=== PATIENT | male | born 1945 | race Caucasian/White ===

== ENCOUNTER 2022-04-06 18:51 | Observation (INO) ==
--- NOTE | 2022-04-06 19:15 | Emergency Department Note ---
Impression & Plan Encephalopathy, Closed head injury, Acute dehydration ED Provider Note Name: JOSHUA MEJÍA Age: 77 Sex: M Arrives Via: Ambulance Informant: Patient ( poor historian) EMS ED Provider: Luigi Guerrier MD Chief Complaint: Weakness Impression: As per impressions above Medical Decision Makin-year-old gentleman with no known past medical history is never been to this facility previously arrives via EMS after stumbling and falling in a parking lot. On examination patient is severely dehydrated appearing and encephalopathic. He is answering questions sometimes nonsensically but has no evidence of meningeal findings. He does have a contusion to the left side of his head/eyebrow. CT imaging of the head and neck are fortunately negative. A chest x-ray reveals no acute findings. Laboratory remarkable for some dehydration. UA is not convincing that it is infectious. I did obtain blood cultures and lactate which lactate is mildly elevated. While unlikely infectious I thought it was prudent to treat with a dose of IV antibiotics while awaiting further work-up. Procalcitonin was fortunately 0. Multiple repeat evaluations patient does appear better with IV fluids though still seems slightly off and thus I do not feel be safe to discharge him at this time. I do not feel that he needs an LP at this time as he is much more with it and has no clear meningeal findings on exam nor is there is significant WBC elevation or fever. He has no abdominal tenderness to palpation thus CT of the abdomen pelvis seems unnecessary at this time. Hospitalist was consulted for further management. Triage/Nursing Notes reviewed by Me Additional history obtained from EMS Differentials:Infection, dehydration, metabolic abnormality, hypo/hyperglycemia, electrolyte disturbance, anemia, hypoxia, cardiac sources, intracerebral event, toxicologic, neurologic, as well as other pathologies. Vital Signs: reviewed and remarkable for no significant abnormalities Interventions: Normal saline bolus Labs:Reviewed and remarkable for no significant abnormalities Imaging:CT imaging of head and neck as well as chest x-ray are negative as per radiologist EKG:Per My Interpretation: Indication weakness: Atrial sensed ventricular paced at 74 bpm without ischemia or ectopy. QTC of 488. There is no previous EKG for comparison. Cardiac/Tele Monitoring: Cardiac Monitoring: An Order was placed for continuous cardiac monitoring. The monitor shows a rate of 70with a paced rhythm. Consults:Dr. Todd Pino hospitalist Plan: Disposition:Hospitalization. Condition: Fair History of Present Illness:77-year-old gentleman brought in by EMS for evaluation of weakness. Patient reportedly was walking across parking lot when he fell over possibly on a curb. He hit the left side of his head. There is no reported loss of consciousness, nausea, vomiting. Patient brought into the ER as somewhat confused with a head injury. On arrival patient is quite dehydrated, cachectic and unkempt appearing. He smells strongly of urine and is somewhat encephalopathic. He is not able to give a very good review of systems nor really much history. Is much as he can say that he was admitted to another hospital a week or so ago which she says was for a checkup. He is unsure of what medications he is on. He does not know his past medical history other than he has a pacemaker. He denies doing any drugs or alcohol. He denies any current headache or neck pain or chest pain or shortness of breath. He denies any abdominal pain, nausea, vomiting, leg swelling, calf pain, fevers, chills, u rinary/bowel symptoms or any other symptoms at this time. ROS: Unable to obtain as patient somewhat encephalopathic Past Medical History: Unable to obtain due to patient mental status Past Surgical History:Unable to obtain due to patient mental status Family History:Unable to obtain due to patient mental status Social History:Unable to obtain due to patient mental status Home Medications:Unable to obtain due to patient mental status Allergies:Unable to obtain due to patient mental status Vitals:Blood Pressure: 135/70, Pulse 70, RR 18, T 36.9C, O2 92% on RA Physical Exam: GENERAL: Patient is mildly confused and unwell appearing and in no acute d istress. Dehydrated appearing EYES: No scleral icterus, unremarkable pupils. ENT: Mucous membranes dry, no nasal congestion. NECK: No masses appreciated, nomeningismus, trachea is midline. No nuchal rigidity RESPIRATORY: No dyspnea. Clear to auscultation and equal bilaterally. No wheeze, no rhonchi. CARDIOVASCULAR: Regular rate and rhythm.No murmurs, rubs, gallops appreciated. GASTROINTESTINAL: Abdomen soft, non-tender, no peritonitis.Bowel sounds positive.No masses appreciated. BACK: No midline tenderness, no CVA tenderness EXTREMITIES: Normal motion all extremities, no cyanosis, no edema. NEUROLOGIC: Patient somewhat somnolent though answering questions sometimes nonsensically, no acute motor or sensory deficits, no focal weakness, cranial nerves grossly intact. SKIN: No rash, no jaundice, no diaphoresis. GCS: 13 ED Course: Times/Reassessments: Patient much improved after IV fluids though still somewhat encephalopathic and thus hospitalist consulted for further management. Luigi Guerrier MD Past Med/Surg History Social History Smoking Status: Current every day smoker Hx Alcohol Use: No Hx Substance Use: No Preferred Language: Filipino Communication Ability: Effective Flexo Operator Required: No Beliefs That Will Affect Care: None marital status: Single Current Living Situation: Homeless Current Living Situation Comment: pt states he is living in his truck at a [place], no home Feels Safe at Home: Yes Assistive Devices: None Allergies Allergies Allergy/AdvReac Type Severity Reaction Status Date / Time Sulfa (Sulfonamide AdvReac Intermediate loc Verified 04/06/22 22:43 Antibiotics) Home Meds Home Medications Medication Instructions Recorded Confirmed atorvastatin 40 mg tablet 40 mg PO DAILY 04/06/22 04/06/22 digoxin 125 mcg (0.125 mg) tablet 125 mcg PO DAILY 04/06/22 04/06/22 escitalopram oxalate 10 mg tablet 10 mg PO DAILY 04/06/22 04/06/22 gabapentin 300 mg capsule 300 mg PO HS 04/06/22 04/06/22 metoprolol succinate 50 mg 50 mg PO DAILY 04/06/22 04/06/22 tablet,extended release 24 hr pantoprazole 40 mg tablet,delayed 40 mg PO DAILY 04/06/22 04/06/22 release tamsulosin 0.4 mg capsule 0.8 mg PO DAILY 04/06/22 04/06/22 Results & Data (ED) Vital Signs Vital Signs - 24 hr 04/06/22 19:07 04/06/22 20:52 Temperature 37.3 C Temperature Source Oral Pulse Rate 78 Pulse Rate [Apical] 67 Respiratory Rate 21 18 Respiratory Effort / Characteristics Non-Labored Respiratory Depth Normal Normal Blood Pressure 126/71 Blood Pressure [Right Arm] 128/78 Blood Pressure Mean 89 Blood Pressure Mean [Right Arm] 94 Pulse Oximetry 98 98 Oxygen Delivery Method Room Air Room Air Sepsis Recent Fever Within 48 Hours No Sepsis New/Unexplained Change in Mental Status N/A Sepsis Action Taken by Nursing No Action Required Laboratory Data Result diagrams: 04/07/22 05:37 04/07/22 05:37 Lab Results 04/06/22 04/06/22 04/06/22 Range/Units 19:11 19:11 19:11 WBC (4.8-10.8) K/uL RBC (4.7-6.1) M/uL Hgb (14.0-18.0) g/dL Hct (42-52) % MCV (80-100) fL MCH (25-34) pg MCHC (32-36) g/dL RDW Std Deviation (36.4-46.3) fL RDW Coeff of Gab (11.5-14.5) % Plt Count (130-400) K/uL MPV (7.4-10.4) fL Immature Gran % (Auto) % Neut % (Auto) % Lymph % (Auto) % [place] % (Auto) % Eos % (Auto) % Baso % (Auto) % Reticulocyte % (Auto) (0.5-2.0) % Neut # (Auto) (1.4-6.5) K/uL Lymph # (Auto) (1.2-3.4) K/uL [place] # (Auto) (0.11-0.59) K/uL Eos # (Auto) (0-0.5) K/uL Baso # (Auto) (0-0.2) K/uL Reticulocyte # (0.02-0.10) 10^6/uL Immature Gran # (Auto) (0.00-0.02) K/uL PT (9.0-12.0) Seconds INR (0.9-1.1) Sodium 141 (136-145) mmol/L Potassium 3.8 (3.5-5.1) mmol/L Chloride 108 H (98-107) mmol/L Carbon Dioxide 24 (21-32) mmol/L Anion Gap 9 (3-11) BUN 23 (6-23) mg/dl Creatinine 1.40 (0.6-1.4) mg/dl Est Cr Clr Drug Dosing 49.3 ml/min Est GFR ( Amer) 56.2 ml/min Est GFR (Non-Af Amer) 48.5 ml/min BUN/Creatinine Ratio 16.4 (10-20) Glucose 121 H (70-99(Fasting)) mg/dl Estimat Average Glucose mg/dl Hemoglobin A1c (4.5-5.6) % Lactate 2.2 H* (0.4-2.0) mmol/L Calcium 8.9 (8.5-10.1) mg/dl Magnesium 2.1 (1.7-2.4) mg/dl Total Bilirubin 0.8 (0.2-1.0) mg/dl Direct Bilirubin 0.1 (0-0.2) mg/dl AST 22 (13-39) U/L ALT 12 (7-52) U/L Alkaline Phosphatase 108 H (34-104) U/L Total Creatine Kinase 460 H (30-223) U/L Troponin I High Sens 12.3 (0-20) pg/ml Total Protein 6.4 (6.0-8.3) gm/dl Albumin 3.8 (3.4-5.0) gm/dl Lipase 9 L (11-82) U/L Vitamin B12 (180-914) pg/ml Folate (>5.38) ng/ml Procalcitonin < 0.05 (0-0.5) ng/ml TSH (0.300-4.500) uIu/ml Urine Color Urine Appearance (Clear) Urine pH (4.5-7.5) Ur Specific [place] (1.000-1.030) Urine Protein (Negative) Urine Glucose (UA) (Negative) Urine Ketones (Negative) Urine Blood (Negative) Urine Nitrite (Negative) Urine Bilirubin (Negative) Urine Urobilinogen (Negative) Ur Leukocyte Esterase (Negative) Urine WBC (Auto) (0-5) /hpf Urine RBC (Auto) (0-4) /hpf U Hyaline Cast (Auto) (0-5) /lpf U Epithel Cells (Auto) (0-5) /lpf Urine Bacteria (Auto) (Negative) Urine Yeast (None Prsent) Urine Opiates Screen (Neg) Ur Methadone, Qual (Neg) Urine Barbiturates (Neg) Ur Phencyclidine (PCP) (Neg) U Amphetamin/Meth Scrn (Neg) MDMA (Ecstasy) Screen (Neg) U Benzodiazepines Scrn (Neg) Ur Cocaine Metabolite (Neg) U Marijuana (THC) Screen (Neg) 04/06/22 04/06/22 04/06/22 Range/Units 19:11 19:11 19:11 WBC 8.04 (4.8-10.8) K/uL RBC 3.95 L (4.7-6.1) M/uL Hgb 12.3 L (14.0-18.0) g/dL Hct 37.9 L (42-52) % MCV 95.9 (80-100) fL MCH 31.1 (25-34) pg MCHC 32.5 (32-36) g/dL RDW Std Deviation 48.8 H (36.4-46.3) fL RDW Coeff of Gab 14.0 (11.5-14.5) % Plt Count 259 (130-400) K/uL MPV 10.9 H (7.4-10.4) fL Immature Gran % (Auto) 0.4 % Neut % (Auto) 76.4 % Lymph % (Auto) 9.0 % [place] % (Auto) 12.9 % Eos % (Auto) 1.1 % Baso % (Auto) 0.2 % Reticulocyte % (Auto) 1.1 (0.5-2.0) % Neut # (Auto) 6.14 (1.4-6.5) K/uL Lymph # (Auto) 0.72 L (1.2-3.4) K/uL [place] # (Auto) 1.04 H (0.11-0.59) K/uL Eos # (Auto) 0.09 (0-0.5) K/uL Baso # (Auto) 0.02 (0-0.2) K/uL Reticulocyte # 0.04 (0.02-0.10) 10^6/uL Immature Gran # (Auto) 0.03 H (0.00-0.02) K/uL PT 11.2 (9.0-12.0) Seconds INR 1.1 (0.9-1.1) Sodium (136-145) mmol/L Potassium (3.5-5.1) mmol/L Chloride (98-107) mmol/L Carbon Dioxide (21-32) mmol/L Anion Gap (3-11) BUN (6-23) mg/dl Creatinine (0.6-1.4) mg/dl Est Cr Clr Drug Dosing ml/min Est GFR ( Amer) ml/min Est GFR (Non-Af Amer) ml/min BUN/Creatinine Ratio (10-20) Glucose (70-99(Fasting)) mg/dl Estimat Average Glucose mg/dl Hemoglobin A1c (4.5-5.6) % Lactate (0.4-2.0) mmol/L Calcium (8.5-10.1) mg/dl Magnesium (1.7-2.4) mg/dl Total Bilirubin (0.2-1.0) mg/dl Direct Bilirubin (0-0.2) mg/dl AST (13-39) U/L ALT (7-52) U/L Alkaline Phosphatase (34-104) U/L Total Creatine Kinase (30-223) U/L Troponin I High Sens (0-20) pg/ml Total Protein (6.0-8.3) gm/dl Albumin (3.4-5.0) gm/dl Lipase (11-82) U/L Vitamin B12 (180-914) pg/ml Folate (>5.38) ng/ml Procalcitonin (0-0.5) ng/ml TSH 2.202 (0.300-4.500) uIu/ml Urine Color Urine Appearance (Clear) Urine pH (4.5-7.5) Ur Specific [place] (1.000-1.030) Urine Protein (Negative) Urine Glucose (UA) (Negative) Urine Ketones (Negative) Urine Blood (Negative) Urine Nitrite (Negative) Urine Bilirubin (Negative) Urine Urobilinogen (Negative) Ur Leukocyte Esterase (Negative) Urine WBC (Auto) (0-5) /hpf Urine RBC (Auto) (0-4) /hpf U Hyaline Cast (Auto) (0-5) /lpf U Epithel Cells (Auto) (0-5) /lpf Urine Bacteria (Auto) (Negative) Urine Yeast (None Prsent) Urine Opiates Screen (Neg) Ur Methadone, Qual (Neg) Urine Barbiturates (Neg) Ur Phencyclidine (PCP) (Neg) U Amphetamin/Meth Scrn (Neg) MDMA (Ecstasy) Screen (Neg) U Benzodiazepines Scrn (Neg) Ur Cocaine Metabolite (Neg) U Marijuana (THC) Screen (Neg) 04/06/22 04/06/22 04/06/22 Range/Units 19:11 20:45 21:07 WBC (4.8-10.8) K/uL RBC (4.7-6.1) M/uL Hgb (14.0-18.0) g/dL Hct (42-52) % MCV (80-100) fL MCH (25-34) pg MCHC (32-36) g/dL RDW Std Deviation (36.4-46.3) fL RDW Coeff of Gab (11.5-14.5) % Plt Count (130-400) K/uL MPV (7.4-10.4) fL Immature Gran % (Auto) % Neut % (Auto) % Lymph % (Auto) % [place] % (Auto) % Eos % (Auto) % Baso % (Auto) % Reticulocyte % (Auto) (0.5-2.0) % Neut # (Auto) (1.4-6.5) K/uL Lymph # (Auto) (1.2-3.4) K/uL [place] # (Auto) (0.11-0.59) K/uL Eos # (Auto) (0-0.5) K/uL Baso # (Auto) (0-0.2) K/uL Reticulocyte # (0.02-0.10) 10^6/uL Immature Gran # (Auto) (0.00-0.02) K/uL PT (9.0-12.0) Seconds INR (0.9-1.1) Sodium (136-145) mmol/L Potassium (3.5-5.1) mmol/L Chloride (98-107) mmol/L Carbon Dioxide (21-32) mmol/L Anion Gap (3-11) BUN (6-23) mg/dl Creatinine (0.6-1.4) mg/dl Est Cr Clr Drug Dosing ml/min Est GFR ( Amer) ml/min Est GFR (Non-Af Amer) ml/min BUN/Creatinine Ratio (10-20) Glucose (70-99(Fasting)) mg/dl Estimat Average Glucose 111 mg/dl Hemoglobin A1c 5.5 (4.5-5.6) % Lactate 1.4 (0.4-2.0) mmol/L Calcium (8.5-10.1) mg/dl Magnesium (1.7-2.4) mg/dl Total Bilirubin (0.2-1.0) mg/dl Direct Bilirubin (0-0.2) mg/dl AST (13-39) U/L ALT (7-52) U/L Alkaline Phosphatase (34-104) U/L Total Creatine Kinase (30-223) U/L Troponin I High Sens (0-20) pg/ml Total Protein (6.0-8.3) gm/dl Albumin (3.4-5.0) gm/dl Lipase (11-82) U/L Vitamin B12 (180-914) pg/ml Folate (>5.38) ng/ml Procalcitonin (0-0.5) ng/ml TSH (0.300-4.500) uIu/ml Urine Color Dark Yellow Urine Appearance Cloudy A (Clear) Urine pH 5.0 (4.5-7.5) Ur Specific [place] 1.021 (1.000-1.030) Urine Protein 1+ H (Negative) Urine Glucose (UA) Negative (Negative) Urine Ketones Trace H (Negative) Urine Blood 2+ H (Negative) Urine Nitrite Negative (Negative) Urine Bilirubin Negative (Negative) Urine Urobilinogen Negative (Negative) Ur Leukocyte Esterase 2+ H (Negative) Urine WBC (Auto) >30 H (0-5) /hpf Urine RBC (Auto) 10-30 H (0-4) /hpf U Hyaline Cast (Auto) 1-5 (0-5) /lpf U Epithel Cells (Auto) 0-5 (0-5) /lpf Urine Bacteria (Auto) Negative (Negative) Urine Yeast Budding A (None Prsent) Urine Opiates Screen (Neg) Ur Methadone, Qual (Neg) Urine Barbiturates (Neg) Ur Phencyclidine (PCP) (Neg) U Amphetamin/Meth Scrn (Neg) MDMA (Ecstasy) Screen (Neg) U Benzodiazepines Scrn (Neg) Ur Cocaine Metabolite (Neg) U Marijuana (THC) Screen (Neg) 04/06/22 04/06/22 Range/Units 21:09 21:21 WBC (4.8-10.8) K/uL RBC (4.7-6.1) M/uL Hgb (14.0-18.0) g/dL Hct (42-52) % MCV (80-100) fL MCH (25-34) pg MCHC (32-36) g/dL RDW Std Deviation (36.4-46.3) fL RDW Coeff of Gab (11.5-14.5) % Plt Count (130-400) K/uL MPV (7.4-10.4) fL Immature Gran % (Auto) % Neut % (Auto) % Lymph % (Auto) % [place] % (Auto) % Eos % (Auto) % Baso % (Auto) % Reticulocyte % (Auto) (0.5-2.0) % Neut # (Auto) (1.4-6.5) K/uL Lymph # (Auto) (1.2-3.4) K/uL [place] # (Auto) (0.11-0.59) K/uL Eos # (Auto) (0-0.5) K/uL Baso # (Auto) (0-0.2) K/uL Reticulocyte # (0.02-0.10) 10^6/uL Immature Gran # (Auto) (0.00-0.02) K/uL PT (9.0-12.0) Seconds INR (0.9-1.1) Sodium (136-145) mmol/L Potassium (3.5-5.1) mmol/L Chloride (98-107) mmol/L Carbon Dioxide (21-32) mmol/L Anion Gap (3-11) BUN (6-23) mg/dl Creatinine (0.6-1.4) mg/dl Est Cr Clr Drug Dosing ml/min Est GFR ( Amer) ml/min Est GFR (Non-Af Amer) ml/min BUN/Creatinine Ratio (10-20) Glucose (70-99(Fasting)) mg/dl Estimat Average Glucose mg/dl Hemoglobin A1c (4.5-5.6) % Lactate (0.4-2.0) mmol/L Calcium (8.5-10.1) mg/dl Magnesium (1.7-2.4) mg/dl Total Bilirubin (0.2-1.0) mg/dl Direct Bilirubin (0-0.2) mg/dl AST (13-39) U/L ALT (7-52) U/L Alkaline Phosphatase (34-104) U/L Total Creatine Kinase (30-223) U/L Troponin I High Sens (0-20) pg/ml Total Protein (6.0-8.3) gm/dl Albumin (3.4-5.0) gm/dl Lipase (11-82) U/L Vitamin B12 363 (180-914) pg/ml Folate 10.36 (>5.38) ng/ml Procalcitonin (0-0.5) ng/ml TSH (0.300-4.500) uIu/ml Urine Color Urine Appearance (Clear) Urine pH (4.5-7.5) Ur Specific [place] (1.000-1.030) Urine Protein (Negative) Urine Glucose (UA) (Negative) Urine Ketones (Negative) Urine Blood (Negative) Urine Nitrite (Negative) Urine Bilirubin (Negative) Urine Urobilinogen (Negative) Ur Leukocyte Esterase (Negative) Urine WBC (Auto) (0-5) /hpf Urine RBC (Auto) (0-4) /hpf U Hyaline Cast (Auto) (0-5) /lpf U Epithel Cells (Auto) (0-5) /lpf Urine Bacteria (Auto) (Negative) Urine Yeast (None Prsent) Urine Opiates Screen Neg (Neg) Ur Methadone, Qual Neg (Neg) Urine Barbiturates Neg (Neg) Ur Phencyclidine (PCP) Neg (Neg) U Amphetamin/Meth Scrn Neg (Neg) MDMA (Ecstasy) Screen Neg (Neg) U Benzodiazepines Scrn Neg (Neg) Ur Cocaine Metabolite Neg (Neg) U Marijuana (THC) Screen Neg (Neg) Administered Medications Ferrous Sulfate (Ferrous Sulfate 325 Mg Tab) 325 mg PO QAM [facility] Stop: 05/07/22 09:14 Last Admin: 04/07/22 10:13 Dose: Not Given Documented by: [id number] Metoprolol Succinate (Metoprolol Succ 50mg Ext Rel Tab) 50 mg PO DAILY [facility] Stop: 05/07/22 08:59 Last Admin: 04/07/22 10:12 Dose: Not Given Documented by: [id number] Pantoprazole Sodium (Pantoprazole 40 Mg Tab) 40 mg PO DAILY [facility] Stop: 05/07/22 08:59 Last Admin: 04/07/22 10:12 Dose: Not Given Documented by: [id number] Tamsulosin HCl (Tamsulosin Hcl 0.4 Mg Cap) 0.8 mg PO DAILY [facility] Stop: 05/07/22 08:59 Last Admin: 04/07/22 10:13 Dose: Not Given Documented by: [id number] Discontinued Medications Sodium Chloride (Nss 1000ml) 1,000 mls @ 999 mls/hr IV .[id number] ONE Stop: 04/06/22 20:51 Last Infusion: 04/06/22 23:30 Dose: 999 mls/hr Documented by: [id number] Admin: 04/06/22 20:34 Dose: 999 mls/hr Documented by: [id number] Cefepime HCl (Maxipime) 2,000 mg in 20 mls @ 5 mls/min IV NOW STA; Protocol Stop: 04/06/22 20:06 Last Admin: 04/06/22 21:49 Dose: 5 mls/min Documented by: [id number] Lactated Ringer's (Lr) 1,000 mls @ 80 mls/hr IV .[id number] ONE Stop: 04/07/22 10:26 Last Admin: 04/06/22 23:52 Dose: 80 mls/hr Documented by: [id number] Naloxone HCl (Naloxone Hcl 0.4 Mg/1 Ml Vial/Carp) 0.4 mg IV NOW STA Stop: 04/06/22 21:38 Last Admin: 04/06/22 21:49 Dose: 0.4 mg Documented by: [id number] Potassium Chloride (Potassium Chloride Crtab 20 Meq Tabcr) 40 meq PO ONE ONE Stop: 04/07/22 09:09 Last Admin: 04/07/22 10:13 Dose: Not Given Documented by: [id number] Discharge Plan Visit Data Chief Complaint: Fall Stated Complaint: FALL, LAC TO L EYEBROW, HEADACHE, CONFUSION ED Provider: Luigi Guerrier Discharge Problem: Encephalopathy, Closed head injury, Acute dehydration Patient Disposition: Admitted As Inpatient Discharge Instructions Interventions: ED Discharge Assessment Last Done: 04/06/22 23:01 Discharge Problem: Closed head injury Qualifiers: Encounter type: initial encounter Qualified Code(s): S09.90XA - Unspecified injury of head, initial encounter
[2022-04-06 19:35] LABS: Basophils # (auto) 0.02 K/uL (0-0.2); Basophils % (auto) 0.2 %; Eosinophils # (auto) 0.09 K/uL (0-0.5); Eosinophils % (auto) 1.1 %; Hematocrit (blood only) 37.9 % (42-52); Hemoglobin 12.3 g/dL (14.0-18.0); Immature Granulocytes # (auto) 0.03 K/uL (0.00-0.02); Immature Granulocytes % (auto) 0.4 %; Lymphocytes # (auto) 0.72 K/uL (1.2-3.4); Mean Corpuscular Hemoglobin 31.1 pg (25-34); Mean Corpuscular Hgb Conc 32.5 g/dL (32-36); Mean Corpuscular Volume 95.9 fL (80-100); Mean Platelet Volume 10.9 fL (7.4-10.4); Monocytes # (auto) 1.04 K/uL (0.11-0.59); Monocytes % (auto) 12.9 %; Neutrophils # (auto) 6.14 K/uL (1.4-6.5); Neutrophils % (auto) 76.4 %; Platelet Count 259 K/uL (130-400); RDW Standard Deviation 48.8 fL (36.4-46.3); Red Blood Count 3.95 M/uL (4.7-6.1); White Blood Count 8.04 K/uL (4.8-10.8)
[2022-04-06 19:38] LABS: INR 1.1 (0.9-1.1); Prothrombin Time 11.2 Seconds (9.0-12.0)
[2022-04-06] MEDS ORDERED: SODIUM CHLORIDE 0.9% 1000ML 1,000 ML IV ONE (19:51)
[2022-04-06 19:56] LABS: Troponin I High Sensitivity 12.3 pg/ml (0-20)
--- NOTE | 2022-04-06 20:00 | CT Scan Report ---
CT head/brain wo con CLINICAL HISTORY: head injury . Pain COMPARISON STUDY: No previous studies for comparison. CT DOSE: 1669.12 mGy.cm TECHNIQUE: Standard CT of the Brain was performed without IV contrast. A dose lowering technique was utilized adhering to the principles of ALARA. FINDINGS: Extraaxial space: There is no evidence for subdural hematoma. There are no extra-axial fluid collecti ons. Ventricles and cisterns: The ventricles are mildly dilated bilaterally. There is no evidence for midl ine shift or mass effect. Parenchyma: There is no subarachnoid or intraparenchymal hemorrhage. There is no evidence for an acut e infarct or cerebral edema. There is mild cerebral cortical atrophy and decreased attenuation in the periventricular white matter representing remote small vessel disease. There are no gross mass lesio ns. Osseous structures: There is no evidence for an acute fracture. The visualized paranasal sinuses are clear. The mastoid air cells are clear bilaterally. Soft tissues: There is no evidence for focal soft tissue swelling. IMPRESSION: 1. No acute intracerebral pathology. 2. Cerebral cortical atrophy and remote small vessel disease. ACT 112: Negative or not required by law. Electronically signed by: Kyler Mitchell M.D. 04/06/2022 7:59 PM
[2022-04-06] MEDS ORDERED: CEFEPIME 2,000 MG/20 ML VIAL IV STA (20:03)
--- NOTE | 2022-04-06 20:03 | CT Scan Report ---
CT cervical spine wo con CLINICAL HISTORY: head injury, fall . Neck pain COMPARISON STUDY: No previous studies for comparison. CT DOSE: TECHNIQUE: Standard CT of the Cervical Spine was performed without IV contrast. A dose lowering mell hnique was utilized adhering to the principles of ALARA. FINDINGS: Bones: Bones are osteopenic. There is no evidence for an acute fracture or malalignment. The heights of the vertebral bodies are maintained. The vertebral bodies are in anatomic alignment. The odontoid is intact and the atlantoaxial articulation is within normal limits. Disc spaces: There is moderate disc space narrowing at C5-6. Apophyseal joints: Degenerative apophyseal joint disease is present bilaterally. Soft tissues: The prevertebral soft tissues are within normal limits. IMPRESSION: 1. Osteopenia with no acute osseous pathology. 2. Degenerative disc and degenerative joint disease. ACT 112: Negative or not required by law. Electronically signed by: Kyler Mitchell M.D. 04/06/2022 8:02 PM
[2022-04-06 20:23] LABS: Influenza A virus by PCR Negative (Neg); Influenza B virus by PCR Negative (Neg); RSV by PCR Negative (Neg); SARS CoV2 RNA(COVID-19) InHosp NEGATIVE (Negative)
[2022-04-06 20:26] LABS: Albumin Level 3.8 gm/dl (3.4-5.0); BUN Creatinine Ratio 16.4 (10-20); Bilirubin Direct 0.1 mg/dl (0-0.2); Bilirubin,Total 0.8 mg/dl (0.2-1.0); Calcium 8.9 mg/dl (8.5-10.1); Creatinine Clr Calc Pharmacy 49.3 ml/min; Est GFR (African American) 56.2 ml/min; Est GFR (Non-African American) 48.5 ml/min; Magnesium 2.1 mg/dl (1.7-2.4); Potassium 3.8 mmol/L (3.5-5.1); Total Protein 6.4 gm/dl (6.0-8.3)
--- NOTE | 2022-04-06 20:42 | XRay Report ---
XR chest 1V portable CLINICAL HISTORY: fall, sepsis. COMPARISON STUDY: No previous studies for comparison. TECHNIQUE: 1 view of the chest FINDINGS: Single frontal view of the chest demonstrates the cardiomediastinal silhouette to be within normal li mits. Permanent cardiac pacer is in place. The lungs are clear of alveolar opacities. There is no rajinder dence for pleural effusion. There is no evidence for vascular congestion. There is no acute osseous p athology. IMPRESSION: 1. No acute cardiopulmonary disease. ACT 112: Negative or not required by law. Electronically signed by: Kyler Mitchell M.D. 04/06/2022 8:41 PM
--- NOTE | 2022-04-06 20:42 | XRay Report ---
XR pelvis 1-2V routine CLINICAL HISTORY: fall, sepsis. COMPARISON STUDY: No previous studies for comparison. TECHNIQUE: [2 AP views of the pelvis FINDINGS: The bones are osteopenic There is no evidence for an acute fracture. The hip joint spaces are maintai adebayo bilaterally and the bones are in anatomic alignment. The SI joints are intact bilaterally. The re maining visualized bones of the pelvis are intact. No focal soft tissue abnormalities identified. IMPRESSION: 1. No acute abnormality. ACT 112: Negative or not required by law. Electronically signed by: Kyler Mitchell M.D. 04/06/2022 8:40 PM
[2022-04-06 21:07] LABS: Appearance Urine Cloudy (Clear); Bacteria Urine Automated Negative (Negative); Bilirubin Urine Negative (Negative); Blood Urine 2+ (Negative); Color Urine Dark Yellow; Epithelial Cell Urine Auto 0-5 /lpf (0-5); Glucose Urine UA Negative (Negative); Ketones Urine Trace (Negative); Leukocyte Esterase Urine 2+ (Negative); Nitrite Urine Negative (Negative); Protein Urine 1+ (Negative); Specific Gravity Urine 1.021 (1.000-1.030); Urobilinogen Urine Negative (Negative); WBC Urine Automated >30 /hpf (0-5)
[2022-04-06] MEDS ORDERED: NALOXONE HCL 0.4 MG/1 ML VIAL/CARP IV STA (21:37)
--- NOTE | 2022-04-06 21:46 | History & Physical Report ---
Date of Service April 06, 2022 Assessment & Plan (1) Encephalopathy: Plan: Possible complicated UTI, no overt sepsis for now Possible syncopal event rule out pacemaker dysfunction, SSS status post PPM on Eliquis Rule out seizure disorder given incontinence symptoms, [facility] ER visit 2016 for similar circumstances Rule out illicit substance abuse Mild rhabdomyolysis secondary to fall, possible seizures hypertension, stable mood disorder Acute on chronic anemia, hemoglobin drop from baseline, FOBT done at the ER was negative Hyperglycemia rule out DM ongoing tobacco abuse Medical telemetry CS, Cefepime Pacemaker interrogation, TTE, EEG for syncope work-up Follow urine tox Follow CPK response to IVF Anemia work-up Check hemoglobin A1c Nicotine patch as needed Obtain records from PCPs office ([facility]) Social service consult in a.m. to trace family/contacts if patient still unable to provide information. DVT prophylaxis. SCDs. Appropriate to hold Eliquis for now given posttraumatic facial bruising until hemoglobin stable. Full code Attempted to call listed [facility], Ms. Char Norris (contact #[phone]). No answer. Text document was generated using [employer] voice recognition software. It may contain grammatical or spelling errors. Kindly contact undersigned for clarification of any documentation item in question. History of Present Illness Chief Complaint: Fall as per records Primary Care Provider: [facility] History obtained from patient, ER provider , and records. Unable to obtain history from patient secondary to lethargic state. Medical history significant for SSS status post PPM on Eliquis, hypertension, mood disorder, chronic anemia (baseline hemoglobin of 13), ongoing tobacco abuse. Patient is a resident [place] who was at the [facility]. Patient had a witnessed fall which led to patient hitting his face. Laceration noted on patient's left eyebrow. Subsequent urinary incontinence noted. No witnessed seizures. Patient noted to be confused. Patient brought to the ER for evaluation. Patient given cefepime at the ER for possible UTI. No response to Narcan trial. Patient unable to answer questions regarding headache, chest pain, S OB, syncope. Medical History as above Surgical History : PPM Family History : Could not be obtained secondary to obtunded state Personal/Social history : Ongoing tobacco abuse Allergies Allergy/AdvReac Type Severity Reaction Status Date / Time Sulfa (Sulfonamide AdvReac Intermediate loc Verified 06/06/22 22:43 Antibiotics) Home Medications Medication Instructions Recorded Confirmed Type atorvastatin 40 mg tablet 40 mg PO DAILY 04/06/22 04/06/22 History digoxin 125 mcg (0.125 mg) tablet 125 mcg PO DAILY 04/06/22 04/06/22 History escitalopram oxalate 10 mg tablet 10 mg PO DAILY 04/06/22 04/06/22 History gabapentin 300 mg capsule 300 mg PO HS 04/06/22 04/06/22 History metoprolol succinate 50 mg 50 mg PO DAILY 04/06/22 04/06/22 History tablet,extended release 24 hr pantoprazole 40 mg tablet,delayed 40 mg PO DAILY 04/06/22 04/06/22 History release tamsulosin 0.4 mg capsule 0.8 mg PO DAILY 04/06/22 04/06/22 History Past Med/Surg History Social History Smoking Status: Current every day smoker Hx Alcohol Use: No Hx Substance Use: No Preferred Language: Estonian Porter Luggage Required: No Beliefs That Will Affect Care: None Current Living Situation: Homeless Current Living Situation Comment: pt states he is living in his truck at a camps[place], no home Feels Safe at Home: Hesitant to Answer Assistive Devices: Walker Review of Systems Review of Systems: Could not be reliably obtained secondary to obtunded state Physical Exam Physical Exam: GENERAL: Obtunded, unkempt, urine stench noted, no respiratory distress SKIN: Pallor, warm HEENT: Contusion above left eyebrow, pale palpebral conjunctivae, no ptosis, dry buccal mucosa NECK : Supple, no tenderness CHEST : Decreased breath sounds, no tenderness HEART : RRR, no obvious murmurs ABDOMEN: Some distention, nontender RECTAL : Intact sphincter, brown stool (FOBT negative) EXTREMITIES : No LE swelling/tenderness, no other conspicuous deformities noted NEUROLOGIC : Obtunded, no facial asymmetry, gait and stance not assessed Results & Data Results & Data ([facility]) Vital Signs (Past 12 Hours) Vital Signs Temp Pulse Resp BP Pulse Ox 04/06/22 19:07 37.3 C 78 21 126/71 98 Laboratory Results Laboratory Results WBC 8.04 K/uL (4.8-10.8) 04/06/22 19:11 RBC 3.95 M/uL (4.7-6.1) L 04/06/22 19:11 Hgb 12.3 g/dL (14.0-18.0) L 04/06/22 19:11 Hct 37.9 % (42-52) L 04/06/22 19:11 MCV 95.9 fL (80-100) 04/06/22 19:11 MCH 31.1 pg (25-34) 04/06/22 19:11 MCHC 32.5 g/dL (32-36) 04/06/22 19:11 RDW Std Deviation 48.8 fL (36.4-46.3) H 04/06/22 19:11 RDW Coeff of Gab 14.0 % (11.5-14.5) 04/06/22 19:11 Plt Count 259 K/uL (130-400) 04/06/22 19:11 MPV 10.9 fL (7.4-10.4) H 04/06/22 19:11 Immature Gran % (Auto) 0.4 % 04/06/22 19:11 Neut % (Auto) 76.4 % 04/06/22 19:11 Lymph % (Auto) 9.0 % 04/06/22 19:11 [place] % (Auto) 12.9 % 04/06/22 19:11 Eos % (Auto) 1.1 % 04/06/22 19:11 Baso % (Auto) 0.2 % 04/06/22 19:11 Neut # (Auto) 6.14 K/uL (1.4-6.5) 04/06/22 19:11 Lymph # (Auto) 0.72 K/uL (1.2-3.4) L 04/06/22 19:11 [place] # (Auto) 1.04 K/uL (0.11-0.59) H 04/06/22 19:11 Eos # (Auto) 0.09 K/uL (0-0.5) 04/06/22 19:11 Baso # (Auto) 0.02 K/uL (0-0.2) 04/06/22 19:11 Immature Gran # (Auto) 0.03 K/uL (0.00-0.02) H 04/06/22 19:11 PT 11.2 Seconds (9.0-12.0) 04/06/22 19:11 INR 1.1 (0.9-1.1) 04/06/22 19:11 Sodium 141 mmol/L (136-145) 04/06/22 19:11 Potassium 3.8 mmol/L (3.5-5.1) 04/06/22 19:11 Chloride 108 mmol/L (98-107) H 04/06/22 19:11 Carbon Dioxide 24 mmol/L (21-32) 04/06/22 19:11 Anion Gap 9 (3-11) 04/06/22 19:11 BUN 23 mg/dl (6-23) 04/06/22 19:11 Creatinine 1.40 mg/dl (0.6-1.4) 04/06/22 19:11 Est Cr Clr Drug Dosing 49.3 ml/min 04/06/22 19:11 Est GFR ( Amer) 56.2 ml/min 04/06/22 19:11 Est GFR (Non-Af Amer) 48.5 ml/min 04/06/22 19:11 BUN/Creatinine Ratio 16.4 (10-20) 04/06/22 19:11 Glucose 121 mg/dl (70-99(Fasting)) H 04/06/22 19:11 Lactate 1.4 mmol/L (0.4-2.0) 04/06/22 21:07 Calcium 8.9 mg/dl (8.5-10.1) 04/06/22 19:11 Magnesium 2.1 mg/dl (1.7-2.4) 04/06/22 19:11 Total Bilirubin 0.8 mg/dl (0.2-1.0) 04/06/22 19:11 Direct Bilirubin 0.1 mg/dl (0-0.2) 04/06/22 19:11 AST 22 U/L (13-39) 04/06/22 19:11 ALT 12 U/L (7-52) 04/06/22 19:11 Alkaline Phosphatase 108 U/L (34-104) H 04/06/22 19:11 Total Creatine Kinase 460 U/L (30-223) H 04/06/22 19:11 Troponin I High Sens 12.3 pg/ml (0-20) 04/06/22 19:11 Total Protein 6.4 gm/dl (6.0-8.3) 04/06/22 19:11 Albumin 3.8 gm/dl (3.4-5.0) 04/06/22 19:11 Lipase 9 U/L (11-82) L 04/06/22 19:11 Procalcitonin < 0.05 ng/ml (0-0.5) 04/06/22 19:11 Urine Color Dark Yellow 04/06/22 20:45 Urine Appearance Cloudy (Clear) A 04/06/22 20:45 Urine pH 5.0 (4.5-7.5) 04/06/22 20:45 Ur Specific [place] 1.021 (1.000-1.030) 04/06/22 20:45 Urine Protein 1+ (Negative) H 04/06/22 20:45 Urine Glucose (UA) Negative (Negative) 04/06/22 20:45 Urine Ketones Trace (Negative) H 04/06/22 20:45 Urine Blood 2+ (Negative) H 04/06/22 20:45 Urine Nitrite Negative (Negative) 04/06/22 20:45 Urine Bilirubin Negative (Negative) 04/06/22 20:45 Urine Urobilinogen Negative (Negative) 04/06/22 20:45 Ur Leukocyte Esterase 2+ (Negative) H 04/06/22 20:45 Urine WBC (Auto) >30 /hpf (0-5) H 04/06/22 20:45 Urine RBC (Auto) 10-30 /hpf (0-4) H 04/06/22 20:45 U Hyaline Cast (Auto) 1-5 /lpf (0-5) 04/06/22 20:45 U Epithel Cells (Auto) 0-5 /lpf (0-5) 04/06/22 20:45 Urine Bacteria (Auto) Negative (Negative) 04/06/22 20:45 Urine Yeast Budding (None Prsent) A 04/06/22 20:45 SARS-CoV-2 (PCR) NEGATIVE (Negative) 04/06/22 Unknown Influenza Type A (PCR) Negative (Neg) 04/06/22 Unknown Influenza Type B (PCR) Negative (Neg) 04/06/22 Unknown RSV (RT-PCR) Negative (Neg) 04/06/22 Unknown Impressions Cervical Spine CT 04/06/22 19:03 CT cervical spine wo con CLINICAL HISTORY: head injury, fall . Neck pain COMPARISON STUDY: No previous studies for comparison. CT DOSE: TECHNIQUE: Standard CT of the Cervical Spine was performed without IV contrast. A dose lowering technique was utilized adhering to the principles of ALARA. FINDINGS: Bones: Bones are osteopenic. There is no evidence for an acute fracture or malalignment. The heights of the vertebral bodies are maintained. The vertebral bodies are in anatomic alignment. The odontoid is intact and the atlantoaxial articulation is within normal limits. Disc spaces: There is moderate disc space narrowing at C5-6. Apophyseal joints: Degenerative apophyseal joint disease is present bilaterally. Soft tissues: The prevertebral soft tissues are within normal limits. IMPRESSION: 1. Osteopenia with no acute osseous pathology. 2. Degenerative disc and degenerative joint disease. ACT 112: Negative or not required by law. Electronically signed by: Kyler Mitchell M.D. 04/06/2022 8:02 PM Chest X-Ray 04/06/22 19:03 XR chest 1V portable CLINICAL HISTORY: fall, sepsis. COMPARISON STUDY: No previous studies for comparison. TECHNIQUE: 1 view of the chest FINDINGS: Single frontal view of the chest demonstrates the cardiomediastinal silhouette to be within normal limits. Permanent cardiac pacer is in place. The lungs are clear of alveolar opacities. There is no evidence for pleural effusion. There is no evidence for vascular congestion. There is no acute osseous pathology. IMPRESSION: 1. No acute cardiopulmonary disease. ACT 112: Negative or not required by law. Electronically signed by: Kyler Mitchell M.D. 04/06/2022 8:[address] 04/06/22 19:03 CT head/brain wo con CLINICAL HISTORY: head injury . Pain COMPARISON STUDY: No previous studies for comparison. CT DOSE: 1669.12 mGy.cm TECHNIQUE: Standard CT of the Brain was performed without IV contrast. A dose lowering technique was utilized adhering to the principles of ALARA. FINDINGS: Extraaxial space: There is no evidence for subdural hematoma. There are no extra-axial fluid collections. Ventricles and cisterns: The ventricles are mildly dilated bilaterally. There is no evidence for midline shift or mass effect. Parenchyma: There is no subarachnoid or intraparenchymal hemorrhage. There is no evidence for an acute infarct or cerebral edema. There is mild cerebral cortical atrophy and decreased attenuation in the periventricular white matter representing remote small vessel disease. There are no gross mass lesions. Osseous structures: There is no evidence for an acute fracture. The visualized paranasal sinuses are clear. The mastoid air cells are clear bilaterally. Soft tissues: There is no evidence for focal soft tissue swelling. IMPRESSION: 1. No acute intracerebral pathology. 2. Cerebral cortical atrophy and remote small vessel disease. ACT 112: Negative or not required by law. Electronically signed by: Kyler Mitchell M.D. 04/06/2022 7:59 PM Pelvis X-Ray 04/06/22 19:03 XR pelvis 1-2V routine CLINICAL HISTORY: fall, sepsis. COMPARISON STUDY: No previous studies for comparison. TECHNIQUE: [2 AP views of the pelvis FINDINGS: The bones are osteopenic There is no evidence for an acute fracture. The hip joint spaces are maintained bilaterally and the bones are in anatomic alignment. The SI joints are intact bilaterally. The remaining visualized bones of the pelvis are intact. No focal soft tissue abnormalities identified. IMPRESSION: 1. No acute abnormality. ACT 112: Negative or not required by law. Electronically signed by: Kyler Mitchell M.D. 04/06/2022 8:40 PM Diagnostic Findings EKG as per my interpretation: Rate 75, paced rhythm
[2022-04-06] MEDS ORDERED: LACTATED RINGER'S 1,000 ML IV ONE (21:57)
[2022-04-06 22:04] LABS: Amphetamines+Metham, Urine Neg (Neg); Barbiturates, Urine Neg (Neg); Benzodiazepine, Urine Neg (Neg); Cocaine, Urine Neg (Neg); MDMA (Ecstacy), Urine Neg (Neg); Methadone, Urine Neg (Neg); Opiate, Urine Neg (Neg); Phencyclidine, Urine Neg (Neg)
[2022-04-06 22:51] LABS: Reticulocyte % 1.1 % (0.5-2.0); Reticulocytes # 0.04 10^6/uL (0.02-0.10)
[2022-04-06] MEDS ORDERED: ACETAMINOPHEN 325 MG TAB PO PRN (23:34)
[2022-04-06 23:41] LABS: Folate (Folic Acid) 10.36 ng/ml (>5.38)
[2022-04-07 01:17] LABS: Ferritin 59.5 ng/ml (8-388)
[2022-04-07 05:59] LABS: Basophils # (auto) 0.02 K/uL (0-0.2); Basophils % (auto) 0.3 %; Eosinophils # (auto) 0.24 K/uL (0-0.5); Eosinophils % (auto) 3.1 %; Hematocrit (blood only) 33.2 % (42-52); Hemoglobin 10.7 g/dL (14.0-18.0); Immature Granulocytes # (auto) 0.02 K/uL (0.00-0.02); Immature Granulocytes % (auto) 0.3 %; Lymphocytes # (auto) 1.41 K/uL (1.2-3.4); Lymphocytes % (auto) 18.3 %; Mean Corpuscular Hemoglobin 31.2 pg (25-34); Mean Corpuscular Hgb Conc 32.2 g/dL (32-36); Mean Corpuscular Volume 96.8 fL (80-100); Mean Platelet Volume 10.5 fL (7.4-10.4); Monocytes # (auto) 1.07 K/uL (0.11-0.59); Monocytes % (auto) 13.9 %; Neutrophils # (auto) 4.93 K/uL (1.4-6.5); Neutrophils % (auto) 64.1 %; Platelet Count 204 K/uL (130-400); RDW Coefficient of Variation 14.2 % (11.5-14.5); RDW Standard Deviation 50.1 fL (36.4-46.3); Red Blood Count 3.43 M/uL (4.7-6.1); White Blood Count 7.69 K/uL (4.8-10.8)
[2022-04-07 06:23] LABS: Est GFR (African American) 84.4 ml/min; Est GFR (Non-African American) 72.8 ml/min; Potassium 3.4 mmol/L (3.5-5.1)
[2022-04-07 07:12] LABS: Estimated Average Glucose 111 mg/dl; Hemoglobin A1C 5.5 % (4.5-5.6)
[2022-04-07] MEDS: TAMSULOSIN HCL 0.4 MG CAP PO SCH ×2 (08:06→10:13)
[2022-04-07] MEDS: METOPROLOL SUCC 50MG EXT REL TAB PO SCH ×2 (08:07→10:12)
[2022-04-07] MEDS: PANTOprazole 40 MG TAB PO SCH ×2 (08:07→10:12)
[2022-04-07] MEDS ORDERED: POTASSIUM CHLORIDE CRTAB 20 MEQ TABCR PO ONE (09:08)
[2022-04-07] MEDS: FERROUS SULFATE 325 MG TAB PO SCH ×2 (10:13→12:34)
[2022-04-07] MEDS: CEFEPIME 2,000 MG in SYRINGE 0 ML IV SCH ×2 (12:23→23:27)
--- NOTE | 2022-04-07 12:58 | Electroencephalogram ---
EEG Procedure Note Date of Service April 07, 2022 Start / End Times Start Time: 11:44 End Time: 12:[address] Austen Davalos History A 77-year-old male admitted with possible complicated urinary tract infection with confusion. EEG performed evaluation epileptiform activity. Home Medication List Medication Instructions Recorded Confirmed Type atorvastatin 40 mg tablet 40 mg PO DAILY 04/06/22 04/06/22 History digoxin 125 mcg (0.125 mg) tablet 125 mcg PO DAILY 04/06/22 04/06/22 History escitalopram oxalate 10 mg tablet 10 mg PO DAILY 04/06/22 04/06/22 History gabapentin 300 mg capsule 300 mg PO HS 04/06/22 04/06/22 History metoprolol succinate 50 mg 50 mg PO DAILY 04/06/22 04/06/22 History tablet,extended release 24 hr pantoprazole 40 mg tablet,delayed 40 mg PO DAILY 04/06/22 04/06/22 History release tamsulosin 0.4 mg capsule 0.8 mg PO DAILY 04/06/22 04/06/22 History Inpatient Medication List Ferrous Sulfate (Ferrous Sulfate 325 Mg Tab) 325 mg PO QAM [facility] Stop: 05/07/22 09:14 Last Admin: 04/07/22 12:34 Dose: 325 mg Documented by: [id number] Cefepime HCl 2,000 mg/ Syringe 20 mls @ 5 mls/min IV Q12H [facility]; Protocol Stop: 04/17/22 11:59 Last Admin: 04/07/22 12:23 Dose: 5 mls/min Documented by: [id number] Metoprolol Succinate (Metoprolol Succ 50mg Ext Rel Tab) 50 mg PO DAILY [facility] Stop: 05/07/22 08:59 Last Admin: 04/07/22 10:12 Dose: Not Given Documented by: [id number] Pantoprazole Sodium (Pantoprazole 40 Mg Tab) 40 mg PO DAILY [facility] Stop: 05/07/22 08:59 Last Admin: 04/07/22 10:12 Dose: Not Given Documented by: [id number] Tamsulosin HCl (Tamsulosin Hcl 0.4 Mg Cap) 0.8 mg PO DAILY [facility] Stop: 05/07/22 08:59 Last Admin: 04/07/22 10:13 Dose: Not Given Documented by: [id number] Discontinued Medications Sodium Chloride (Nss 1000ml) 1,000 mls @ 999 mls/hr IV .[id number] ONE Stop: 04/06/22 20:51 Last Infusion: 04/06/22 23:30 Dose: 999 mls/hr Documented by: [id number] Admin: 04/06/22 20:34 Dose: 999 mls/hr Documented by: [id number] Cefepime HCl (Maxipime) 2,000 mg in 20 mls @ 5 mls/min IV NOW STA; Protocol Stop: 04/06/22 20:06 Last Admin: 04/06/22 21:49 Dose: 5 mls/min Documented by: [id number] Lactated Ringer's (Lr) 1,000 mls @ 80 mls/hr IV .[id number] ONE Stop: 04/07/22 10:26 Last Infusion: 04/07/22 12:30 Dose: 0 mls/hr Documented by: [id number] Admin: 04/06/22 23:52 Dose: 80 mls/hr Documented by: [id number] Naloxone HCl (Naloxone Hcl 0.4 Mg/1 Ml Vial/Carp) 0.4 mg IV NOW STA Stop: 04/06/22 21:38 Last Admin: 04/06/22 21:49 Dose: 0.4 mg Documented by: [id number] Potassium Chloride (Potassium Chloride Crtab 20 Meq Tabcr) 40 meq PO ONE ONE Stop: 04/07/22 09:09 Last Admin: 04/07/22 10:13 Dose: Not Given Documented by: [id number] Description This is a 21 electrode EEG with a single channel dedicated to limited EKG. The electrodes were placed in accordance with the International 10-20 system. REPORT: At the onset of the EEG the patient is awake. The background is symmetric. There is a normal anterior to posterior gradient. The posterior dominant rhythm is 9 Hz. Anteriorly there is low amplitude beta activity. Drowsiness is characterized by increased theta activity, reduced blink rate, decreased myogenic artifact. Photic stimulation does not induce any abnormalities. No stage 2 sleep transients are seen. Interpretation IMPRESSION: This is a normal awake and drowsy routine EEG. There is no evidence of epileptiform activity or focal slowing.
--- NOTE | 2022-04-07 16:21 | Hospitalist Progress Note ---
Date of Service April 07, 2022 Assessment & Plan (1) Encephalopathy: Plan: Acute metabolic encephalopathy Syncopal Episode ? Secondary to dehydration To rule out infection --CT head:No acute intracerebral pathology. Cerebral cortical atrophy and remote small vessel disease. --EEG:This is a normal awake and drowsy routine EEG. There is no evidence of epileptiform activity or focal slowing. --ECHO: Left ventricle systolic function is normal. EF 60 to 65%. Septal motion consistent with pacemaker activation. Trace TR. Grade 1 diastolic dysfunction, elevated right atrial pressure of 15 mmHg --Negative Tox Screen --Normal TSH Monitor on Tele for any arrhythmias Needs ZIO patch and 72 hr EEG upon discharge Check Orthostatics Pacemaker interrogation requested Mental status much improved today Suspected UTI Empirically started on cefepime Follow-up cultures SSS S/P PPM on Eliquis Continue home medications Mild Rhabdomyolysis secondary to fall Received IV fluids Hold statin Hypertension stable Continue metoprolol Also on tamsulosin Mood disorder Resume escitalopram if mental status continues to improve Acute on chronic anemia Vitamin B12, folic acid Low serum iron levels Started on iron supplements Fecal occult in ED negative No obvious source of bleeding Ongoing tobacco abuse [employer] to quit Hypokalemia Replace electrolytes as needed DVT Px: SCDs for now Resume eliquis as able Code Status Full Code Disposition PT/OT prior to discharge Obtain records from PCPs office ([facility]) Admission and Anticipated Discharge Date Admission Date: April 06, 2022 Subjective Seen and examined at bedside Mental status much improved today Oriented x3 during my encounter Eager to get discharged Admits to have likely lost consciousness for about 4 to 5 minutes "I got dehydrated due to heat" States having mild pain generalized Denies any chest pain, shortness of breath, dizziness, nausea, abdominal pain, dysuria, hematuria Offers no other complaints Review of Systems Review of Systems: All systems reviewed & are unremarkable except as noted in Subjective Physical Exam Physical Exam: Physical Exam: Vitals signs as noted above General Appearance:Moderately built and nourished, no apparent distress Head: normocephalic, +traumatic, Left forehead contusion Eyes: normal inspection, EOMI Neck: supple, Trachea midline Respiratory/Chest: Normal breath sounds, CTA, No accessory muscle use Cardiovascular: S1, S2, No murmur Abdomen/GI:Soft, Non tender, Bowel sounds present Extremities/Musculoskelatal:normal inspection, no edema Neurologic/Psych:AAOX3, grossly no focal neurological deficits Skin: normal color, warm Results & Data Results & Data ([facility]) Vital Signs (Past 12 Hours) Vital Signs Temp Pulse Resp BP Pulse Ox 04/07/22 06:30 36.9 C 70 18 135/76 94 Laboratory Results Short CBC 04/06/22 04/07/22 Range/Units 19:11 05:37 WBC 8.04 7.69 (4.8-10.8) K/uL Hgb 12.3 L 10.7 L (14.0-18.0) g/dL Hct 37.9 L 33.2 L (42-52) % Plt Count 259 204 (130-400) K/uL BMP 04/06/22 04/07/22 19:11 05:37 Sodium 141 141 Potassium 3.8 3.4 L Chloride 108 H 111 H Carbon Dioxide 24 26 BUN 23 19 Creatinine 1.40 1.00 D Glucose 121 H 101 H Calcium 8.9 8.0 L Cardiac Enzymes 04/06/22 04/07/22 Range/Units 19:11 05:37 Total Creatine Kinase 460 H 398 H (30-223) U/L Liver Function 04/06/22 Range/Units 19:11 Total Bilirubin 0.8 (0.2-1.0) mg/dl Direct Bilirubin 0.1 (0-0.2) mg/dl AST 22 (13-39) U/L ALT 12 (7-52) U/L Alkaline Phosphatase 108 H (34-104) U/L Albumin 3.8 (3.4-5.0) gm/dl Urine 04/06/22 Range/Units 20:45 Urine Color Dark Yellow Urine Appearance Cloudy A (Clear) Urine pH 5.0 (4.5-7.5) Ur Specific [place] 1.021 (1.000-1.030) Urine Protein 1+ H (Negative) Urine Glucose (UA) Negative (Negative)
[2022-04-07] MEDS ORDERED: CEFEPIME 2,000 MG in SYRINGE 0 ML IV SCH (18:00)
[2022-04-08 06:04] LABS: Hematocrit (blood only) 35.5 % (42-52); Hemoglobin 11.6 g/dL (14.0-18.0); Mean Corpuscular Hemoglobin 31.2 pg (25-34); Mean Corpuscular Hgb Conc 32.7 g/dL (32-36); Mean Corpuscular Volume 95.4 fL (80-100); Mean Platelet Volume 10.8 fL (7.4-10.4); Platelet Count 209 K/uL (130-400); RDW Coefficient of Variation 13.8 % (11.5-14.5); RDW Standard Deviation 48.3 fL (36.4-46.3); Red Blood Count 3.72 M/uL (4.7-6.1)
[2022-04-08 06:40] LABS: BUN Creatinine Ratio 19.6 (10-20); Calcium 8.3 mg/dl (8.5-10.1); Creatinine Clr Calc Pharmacy 71.1 ml/min; Est GFR (African American) 87.5 ml/min; Est GFR (Non-African American) 75.5 ml/min; Magnesium 1.8 mg/dl (1.7-2.4); Potassium 3.7 mmol/L (3.5-5.1)
[2022-04-08] MEDS: FERROUS SULFATE 325 MG TAB PO SCH (09:00)
[2022-04-08] MEDS: TAMSULOSIN HCL 0.4 MG CAP PO SCH (09:00)
[2022-04-08] MEDS: METOPROLOL SUCC 50MG EXT REL TAB PO SCH (09:01)
[2022-04-08] MEDS: PANTOprazole 40 MG TAB PO SCH (09:01)
--- NOTE | 2022-04-08 11:19 | Hospitalist Progress Note ---
Date of Service April 08, 2022 Assessment & Plan (1) Encephalopathy: Plan: Acute metabolic encephalopathy Syncopal Episode ? Secondary to dehydration To rule out infection --CT head:No acute intracerebral pathology. Cerebral cortical atrophy and remote small vessel disease. --EEG:This is a normal awake and drowsy routine EEG. There is no evidence of epileptiform activity or focal slowing. --ECHO: Left ventricle systolic function is normal. EF 60 to 65%. Septal motion consistent with pacemaker activation. Trace TR. Grade 1 diastolic dysfunction, elevated right atrial pressure of 15 mmHg --Negative Tox Screen --Normal TSH PPM interrogation report noted no alerts TTE reviewed Patient reports he has all his home meds and does not need any refills Reported he had a mechanical fall 2 days prior to the fall/syncope that brought him to the hospital Awaiting PT/OT eval Urinary tract infection ruled out Urine culture negative Stop cefepime SSS S/P PPM Continue home medications Elevated CK secondary to fall Received IV fluids. CK improved Statin was held. Resume on discharge Hypertension stable Continue metoprolol Also on tamsulosin Mood disorder Resume escitalopram on dc Acute on chronic anemia Vitamin B12, folic acid Low serum iron levels Started on iron supplements Fecal occult in ED negative No obvious source of bleeding Ongoing tobacco abuse Counseled to quit DVT Px: SCDs for now Resume eliquis as able Code Status Full Code Disposition PT/OT prior to discharge Obtain records from PCPs office ([facility]) Possible DC today depending on PT/OT eval Admission and Anticipated Discharge Date Admission Date: April 06, 2022 Subjective Patient seen and examined. Denies any headache, dizziness Denies any chest pain, palpitations, shortness of breath, cough Denies any dysuria, frequency, urgency, hematuria Denies any fevers, chills, nausea, vomiting Physical Exam Constitutional: + well hydrated; no acute distress Eyes: PERRL, conjunctivae normal, anicteric sclerae ENMT: external ear and nose normal, oropharynx normal Respiratory: normal respiratory effort, lungs clear to auscultation Cardiovascular: RRR S1 S2 Gastrointestinal (Abdomen): normal bowel sounds, soft, nontender, no hepatosplenomegaly Musculoskeletal: no cyanosis or clubbing, extremities motor strength 5/5 Neurologic: PERRL, EOMI, accommodation nl, no face palsy, no dysarthria Psychiatric: A+Ox3, euthymic affect Results & Data Results & Data ([facility]) Vital Signs (Past 12 Hours) Vital Signs Temp Pulse Pulse Pulse Resp BP Pulse Ox 04/08/22 10:52 36.3 C L 71 20 137/76 96 04/08/22 07:59 36.8 C 70 18 158/80 H 97 04/08/22 07:58 04/08/22 07:38 70 04/08/22 03:02 36.9 C 70 18 120/69 95 04/07/22 23:38 36.8 C 73 20 157/88 H 97 Pulse Ox 04/08/22 10:52 04/08/22 07:59 04/08/22 07:58 97 04/08/22 07:38 04/08/22 03:02 04/07/22 23:38 Laboratory Results Abnormal lab results 04/08/22 04/08/22 Range/Units 05:41 05:41 RBC 3.72 L (4.7-6.1) M/uL Hgb 11.6 L (14.0-18.0) g/dL Hct 35.5 L (42-52) % RDW Std Deviation 48.3 H (36.4-46.3) fL MPV 10.8 H (7.4-10.4) fL Calcium 8.3 L (8.5-10.1) mg/dl
--- NOTE | 2022-04-08 13:40 | Electrocardiogram Report ---
Test Reason : Blood Pressure : / mmHG Vent. Rate : 074 BPM Atrial Rate : 074 BPM P-R Int : 180 ms QRS Dur : 160 ms QT Int : 440 ms P-R-T Axes : 075 267 072 degrees QTc Int : 488 ms Atrial-sensed ventricular-paced rhythm with occasional Premature ventricular complexes Abnormal ECG No previous ECGs available Confirmed by Wm Matamoros ([id number]) on 04/08/2022 1:40:37 PM Referred By: REFERRED SELF Confirmed By:Wm Matamoros
[2022-04-09 08:50] LABS: Hematocrit (blood only) 36.4 % (42-52); Hemoglobin 12.2 g/dL (14.0-18.0); Mean Corpuscular Hemoglobin 31.9 pg (25-34); Mean Corpuscular Hgb Conc 33.5 g/dL (32-36); Mean Corpuscular Volume 95.3 fL (80-100); Mean Platelet Volume 11.2 fL (7.4-10.4); Platelet Count 212 K/uL (130-400); RDW Coefficient of Variation 13.4 % (11.5-14.5); RDW Standard Deviation 46.6 fL (36.4-46.3); Red Blood Count 3.82 M/uL (4.7-6.1); White Blood Count 8.52 K/uL (4.8-10.8)
[2022-04-09] MEDS: TAMSULOSIN HCL 0.4 MG CAP PO SCH (08:51)
[2022-04-09] MEDS: FERROUS SULFATE 325 MG TAB PO SCH (08:52)
[2022-04-09] MEDS: METOPROLOL SUCC 50MG EXT REL TAB PO SCH (08:52)
[2022-04-09] MEDS: PANTOprazole 40 MG TAB PO SCH (08:52)
[2022-04-09 09:08] LABS: BUN Creatinine Ratio 17.5 (10-20); Calcium 8.8 mg/dl (8.5-10.1); Creatinine Clr Calc Pharmacy 71.1 ml/min; Est GFR (African American) 87.5 ml/min; Est GFR (Non-African American) 75.5 ml/min; Potassium 3.9 mmol/L (3.5-5.1)
--- NOTE | 2022-04-09 11:38 | Discharge Summary ---
Date of Service April 09, 2022 Admission HPI Per Admitting Provider History obtained from patient, ER provider , and records. Unable to obtain history from patient secondary to lethargic state. Medical history significant for SSS status post PPM on Eliquis, hypertension, mood disorder, chronic anemia (baseline hemoglobin of 13), ongoing tobacco abuse. Patient is a resident [place] [facility] [place] [address] [place] who was at the [facility] today. Patient had a witnessed fall which led to patient hitting his face. Laceration noted on patient's left eyebrow. Subsequent urinary incontinence noted. No witnessed seizures. Patient noted to be confused. Patient brought to the ER for evaluation. Patient given cefepime at the ER for possible UTI. No response to Narcan trial. Patient unable to answer questions regarding headache, chest pain, S OB, syncope. Medical History as above Surgical History : PPM Family History : Could not be obtained secondary to obtunded state Personal/Social history : Ongoing tobacco abuse Admission Exam Per Admitting Provider GENERAL: Obtunded, unkempt, urine stench noted, no respiratory distress SKIN: Pallor, warm HEENT: Contusion above left eyebrow, pale palpebral conjunctivae, no ptosis, dry buccal mucosa NECK : Supple, no tenderness CHEST : Decreased breath sounds, no tenderness HEART : RRR, no obvious murmurs ABDOMEN: Some distention, nontender RECTAL : Intact sphincter, brown stool (FOBT negative) EXTREMITIES : No LE swelling/tenderness, no other conspicuous deformities noted NEUROLOGIC : Obtunded, no facial asymmetry, gait and stance not assessed Principal Diagnosis Syncope Fall Metabolic encephalopathy Discharge Exam Constitutional + well hydrated; no acute distress Eyes PERRL, conjunctivae normal, anicteric sclerae ENMT external ear and nose normal, oropharynx normal Respiratory normal respiratory effort, lungs clear to auscultation Cardiovascular Rate/Rhythm: regular rate and regular rhythm S1 S2 Gastrointestinal (Abdomen) normal bowel sounds, soft, nontender, no hepatosplenomegaly Musculoskeletal no cyanosis or clubbing, extremities motor strength 5/5 Neurologic PERRL, EOMI, accommodation nl, no face palsy, no dysarthria Psychiatric A+Ox3, euthymic affect Discharge Data Allergies Allergy/AdvReac Type Severity Reaction Status Date / Time Sulfa (Sulfonamide AdvReac Intermediate loc Verified 04/06/22 22:43 Antibiotics) Consultations 04/06/22 20:59 ED Decision to Admit Stat Ordered Studies 04/06/22 19:03 CT cervical spine wo con Stat Bones: Bones are osteopenic. There is no evidence for an acute fracture or malalignment. The heights of the vertebral bodies are maintained. The vertebral bodies are in anatomic alignment. The odontoid is intact and the atlantoaxial articulation is within normal limits. Disc spaces: There is moderate disc space narrowing at C5-6. Apophyseal joints: Degenerative apophyseal joint disease is present bilaterally. Soft tissues: The prevertebral soft tissues are within normal limits. IMPRESSION: 1. Osteopenia with no acute osseous pathology. 2. Degenerative disc and degenerative joint disease. CT head/brain wo con Stat Extraaxial space: There is no evidence for subdural hematoma. There are no extra-axial fluid collections. Ventricles and cisterns: The ventricles are mildly dilated bilaterally. There is no evidence for midline shift or mass effect. Parenchyma: There is no subarachnoid or intraparenchymal hemorrhage. There is no evidence for an acute infarct or cerebral edema. There is mild cerebral cortical atrophy and decreased attenuation in the periventricular white matter representing remote small vessel disease. There are no gross mass lesions. Osseous structures: There is no evidence for an acute fracture. The visualized paranasal sinuses are clear. The mastoid air cells are clear bilaterally. Soft tissues: There is no evidence for focal soft tissue swelling. IMPRESSION: 1. No acute intracerebral pathology. 2. Cerebral cortical atrophy and remote small vessel disease. Hospital Course (1) Encephalopathy: Acute metabolic encephalopathy - Resolved Syncopal Episode Likely secondary to dehydration --CT head:No acute intracerebral pathology. Cerebral cortical atrophy and remote small vessel disease. --EEG:This is a normal awake and drowsy routine EEG. There is no evidence of epileptiform activity or focal slowing. --ECHO: Left ventricle systolic function is normal. EF 60 to 65%. Septal motion consistent with pacemaker activation. Trace TR. Grade 1 diastolic dysfunction, elevated right atrial pressure of 15 mmHg --Negative Tox Screen --Normal TSH UTI ruled out Was reported to be confused on presentation but this quickly resolved PPM interrogation report noted no alerts Patient reports he has all his home meds and does not need any refills Reported he had a mechanical fall 2 days prior to the fall/syncope that brought him to the hospital Was evaluated by OT and SNF recommended. Patient declined this and insisted on discharge home. We discussed risks of fall and he understood Stated he has cane and walker at home. Discussed with CM to try to arrange HH/Home PT if possible Patient advised to follow up with PCP SSS S/P PPM Continue home medications Elevated CK secondary to fall Received IV fluids. CK improved Hypertension Continue metoprolol Also on tamsulosin Mood disorder Continue home escitalopram Anemia Hb was stable in -12. No active bleeding Ongoing tobacco abuse Counseled to quit Total Time Total Time Spent Total Time Spent (In Minutes): 45 Total Time Includes: Examination of the Patient, Discharge Planning and Medication Reconciliation Discharge Plan Discharge Items Patient Disposition: Home - Home Health Services Reason For Visit: Fall Discharge Diagnosis: Syncope Fall Metabolic encephalopathy Activity: As commented below Activity Comment: You need Physical therapy Non-emergency contact: Primary Care Provider Call non-emergency contact if: you have any medication questions and your symptoms worsen Follow-up/Referrals: PCP,NO [Primary Care Provider] - Diet: Heart Healthy Addtl Attending Provider Instructions: Mr Norris. You came to the hospital after a fall and loss of consciousness. You were evaluated and noted to be dehydrated. This was managed. Interrogation of your pacemaker did not show any alerts. You reported other falls prior to presentation. You were evaluated by Occupational therapist who [facility] which you vehemently declined. You insisted on discharge against recommendations. Please ensure follow up with your Primary Doctor. Pending Studies at Discharge: No Stand-Alone Forms: My [facility] [employer], Smoking Cessation Medications and DC Order Prescriptions: Continued atorvastatin 40 mg tablet 40 mg PO DAILY RF: 0 metoprolol succinate 50 mg tablet extended release 24 hr 50 mg PO DAILY RF: 0 pantoprazole 40 mg tablet,delayed release (DR/EC) 40 mg PO DAILY RF: 0 escitalopram oxalate 10 mg tablet 10 mg PO DAILY RF: 0 digoxin 125 mcg (0.125 mg) tablet 125 mcg PO DAILY RF: 0 tamsulosin 0.4 mg capsule 0.8 mg PO DAILY RF: 0 gabapentin 300 mg capsule 300 mg PO HS RF: 0 Discharge Orders: Discharge Order (Routine); Ordered 04/09/22 Ordered By: Alessandra Rodriguez Admission Data Admit Date/Time: 04/06/22 21:54 Attending Provider: Alessandra Rodriguez I. Admit Provider: Austen Davalos Primary Care Provider: PCP,NO Other Providers: Austen Davalos ; Cornelio Peña Other Interventions: Discharge Summary Assessment (RN) Last Done: 04/09/22 10:52
== END 2022-04-09 12:56 | disposition home health service (06) ==
LOC: ED 18:51 → INTOOBSV 21:54 → SUATTDRO 21:54 → 2N 21:54